=== PATIENT | female | born 1960 | race Caucasian/White ===

== ENCOUNTER 2017-07-14 05:30 | Day surgery (SDC) | payer OTHER ==
[~2017-07-14 05:30] MED LIST: ATIVAN0.5 MG PO; COZAAR50 MG PO; DOXEPIN HCL10 MG PO; EFFEXOR XR150 MG PO; EFFEXOR XR75 MG PO; ESTRADIOL1 MG PO; KEFLEX250 MG PO; LYRICA300 MG PO; LYRICA50 MG PO; NAPROXEN500 MG PO; ULTRACET PO; ZANTAC300 MG PO; [UNRECOGNIZED DRUG - OTHER] PO
[2017-07-14] MEDS ORDERED: KEFLEX250 MG PO (12:30)
[2017-07-14] MEDS ORDERED: ULTRACET PO (12:31)
== END 2017-07-14 13:40 | disposition home or self-care (01) ==
LOC: CIR.AMB 05:30
DX: N39.41 Urge incontinence (principal)
CPT/HCPCS: 64590; 64581; C1767; C1778

== ENCOUNTER 2018-03-09 06:21 | Day surgery (SDC) | payer OTHER ==
[2018-03-09] MEDS ORDERED: KEFLEX250 MG PO (10:52)
[2018-03-09] MEDS ORDERED: ULTRACET PO (10:52)
== END 2018-03-09 12:45 | disposition home or self-care (01) ==
LOC: CIR.AMB 06:21
DX: N39.41 Urge incontinence (principal); N32.81 Overactive bladder

== ENCOUNTER 2019-12-06 08:30 | Day surgery (SDC) | payer OTHER ==
[~2019-12-06 08:30] MED LIST changes: +ZOCOR20 MG PO; +[UNRECOGNIZED DRUG - OTHER] PO
[2019-12-06] MEDS ORDERED: KEFLEX500 MG PO (14:04)
[2019-12-06] MEDS ORDERED: ULTRACET PO (14:04)
== END 2019-12-06 16:31 | disposition home or self-care (01) ==
LOC: CIR.AMB 08:30
PROVIDERS: ATTEND Obstetrics & Gynecology Gynecology
DX: T85.191A Other mechanical complication of implanted electronic neurostimulator of peripheral nerve electrode (lead), initial encounter (principal); T85.193A Other mechanical complication of implanted electronic neurostimulator, generator, initial encounter
CPT/HCPCS: 64590; 64581; 95971; C1778; L8679

== ENCOUNTER 2022-06-17 05:15 | Day surgery (SDC) | payer OTHER ==
[~2022-06-17 05:15] MED LIST changes: +KEFLEX500 MG PO; +METFORMIN HCL500 M3 PO; +PROVENTIL HFA6.7 GM IH; +SYMBICORT 16010.2 GM IH; +TENORMIN25 MG PO
[2022-06-17] MEDS ORDERED: CEPHALEXIN250 M1 PO (11:13)
== END 2022-06-17 12:50 | disposition home or self-care (01) ==
LOC: CIR.AMB 05:15
PROVIDERS: ATTEND Obstetrics & Gynecology Gynecology
DX: N39.41 Urge incontinence (principal); N32.81 Overactive bladder; Z20.822 Contact with and (suspected) exposure to COVID-19
CPT/HCPCS: 64590; 64581; 95972; C1778; L8679